=== PATIENT | male | born 2000 | race Caucasian/White ===

== ENCOUNTER → 2021-03-10 16:06 | Outpatient (BNVA) | payer OTHER, SELFPAY | PROVIDERS: Family Provider Pediatrics Adolescent Medicine; Visit Provider Registered Nurse Neonatal Intensive Care | DX: Z20.822 Contact with and (suspected) exposure to COVID-19 (principal) | CPT/HCPCS: 87635 ==

== ENCOUNTER 2022-02-03 14:12 | Emergency (ER) | payer SELFPAY ==
[2022-02-03 14:47] VITALS: BP 119/80; PULSE 88; RESP 12; TEMP 37; O2SAT 99; BMI 19.2
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
== END 2022-02-03 16:43 | disposition home or self-care (01) ==
PROVIDERS: Emergency Provider Nurse Practitioner Family
DX: S40.012A Contusion of left shoulder, initial encounter (principal); S00.83XA Contusion of other part of head, initial encounter; V89.2XXA Person injured in unspecified motor-vehicle accident, traffic, initial encounter; Y92.410 Unspecified street and highway as the place of occurrence of the external cause
CPT/HCPCS: 70450; 73030; 99283

== ENCOUNTER 2023-03-02 08:35 | Emergency (ER) | payer SELFPAY ==
[2023-03-02 08:44] VITALS: BP 134/80; PULSE 71; RESP 16; O2SAT 100; BMI 18.7
[2023-03-02 09:04] VITALS: BP 134/80; PULSE 85; RESP 15; O2SAT 100
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
[2023-03-02] MEDS: iohexol 350 mg/mL 500 mL Btl (per mL) IV (09:45)
[2023-03-02] MEDS: tetanus-dipt-pertussis 0.5 mL SDV IM (10:11)
[2023-03-02 10:30] LABS: Basophils % 0.3 %; Eosinophils % 0.2 %; Hematocrit 45.5 % (42.0-52.0); Hemoglobin 15.3 g/dL (11.7-16.6); Lymphocytes # 1.2 10^3/uL (0.8-4.8); Lymphocytes % 9.5 %; Mean Corpuscular HGB Conc 33.6 g/dL (30.0-36.0); Mean Corpuscular Hemoglobin 30.6 pg (28.0-34.0); Mean Platelet Volume 10.9 fL (7.4-10.4); Monocytes # 0.8 10^3/uL (0.2-0.9); Monocytes % 6.5 %; Neutrophils # 10.57 10^3/uL (1.8-7.7); Nucleated Red Blood Cells % 0 %; Platelet Count 169 10^3/cmm (130-400); Red Cell Distribution Width 12.7 % (12.1-15.1); White Blood Count 12.8 10^3/uL (4.0-10.0)
[2023-03-02 10:45] LABS: Alanine Aminotransferase 17 U/L (0-41); Alkaline Phosphatase 62 U/L (40-130); Anion Gap 12.4 (5-19); Aspartate Amino Transferase 24 U/L (0-40); Blood Urea Nitrogen 12 mg/dL (6-20); Calcium 8.9 mg/dL (8.5-10.5); Carbon Dioxide 24 mmol/L (22-29); Chloride 106 mmol/L (98-107); Globulin 2.5 g/dL (1.3-4.6); Glomerular Filtration Rate 82.2 mL/min (90-130); Glucose 88 mg/dL (65-115); Osmolality Calculated 285 mOsm/kg (285-295); Potassium 4.4 mmol/L (3.5-5.1); Sodium 138 mmol/L (136-145); Total Bilirubin 0.6 mg/dL (0.15-1.2); Total Protein 6.5 g/dL (6.6-8.7)
[2023-03-02] MEDS: neomycin-poly-bacitracin oint 28 gm 1 APPLIC TOPICAL (11:00)
[2023-03-02] MEDS: ketorolac 60 mg/2 mL INJ IM (11:16)
[2023-03-02] MEDS: methocarbamol 750 mg Tablet PO (11:17)
[2023-03-02 11:22] VITALS: BP 134/80; PULSE 83; RESP 16; O2SAT 100
== END 2023-03-02 11:36 | disposition home or self-care (01) ==
PROVIDERS: Emergency Provider Physician Assistant
DX: S22.32XA Fracture of one rib, left side, initial encounter for closed fracture (principal); S22.42XA Multiple fractures of ribs, left side, initial encounter for closed fracture; V49.3XXA Car occupant (driver) (passenger) injured in unspecified nontraffic accident, initial encounter
CPT/HCPCS: 36415; 70450; 71260; 72125; 74177; 80053; 85025; 90715; 96372; 99285; J1885; Q9967

== ENCOUNTER 2023-03-03 11:03 | Emergency (ER) | payer SELFPAY ==
[2023-03-03 11:13] VITALS: BP 127/76; PULSE 79; O2SAT 98
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
[2023-03-03 11:32] VITALS: PULSE 64; O2SAT 98
[2023-03-03 11:33] VITALS: TEMP 36.8
== END 2023-03-03 11:34 | disposition home or self-care (01) ==
PROVIDERS: Emergency Provider Physician Assistant
DX: S27.321A Contusion of lung, unilateral, initial encounter (principal); S22.42XA Multiple fractures of ribs, left side, initial encounter for closed fracture; V89.2XXA Person injured in unspecified motor-vehicle accident, traffic, initial encounter
CPT/HCPCS: 99283